=== PATIENT | female | born 1935 | race Caucasian/White ===

== ENCOUNTER 2019-02-19 10:24 | Observation (INO) ==
[2019-02-19] MEDS ORDERED: ONDANSETRON 4 MG/2 ML VIAL IV STA (11:23)
[2019-02-19] MEDS ORDERED: HYDROmorphone 2 MG/1 ML VIAL IV STA (11:23)
[2019-02-19 11:34] LABS: Basophils % 0.5 % (0.0-0.8); Eosinophils # 0.1 10*3/uL (0.0-0.87); Eosinophils % 0.6 % (0.00-10.9); Hematocrit 31.8 VOL% (35.7-47.0); Hemoglobin 10.6 GM/DL (12.0-16.0); Immature Granulocytes % 0.6 %; Immature Granulocytes Absolute 0.05 #; Lymphocytes # 1.2 10*3/uL (1.4-4.0); Lymphocytes % 15.7 % (21.3-54.2); Mean Corpuscular HGB Conc 33.3 GM/DL (32-36); Mean Corpuscular Volume 90.6 FL (87-102); Mean Platelet Volume 8.7 FL (9.6-12.0); Monocytes % 14.6 % (1.7-12.7); Platelet Count 219 T/CUMM (130-400); Red Blood Count 3.51 MC/CUMM (3.8-5.5); Red Cell Distribution Width 13.2 % (9.3-17.3); White Blood Count 7.9 T/CUMM (4-12)
[2019-02-19 11:44] LABS: INR 0.9; Partial Thromboplastin Time 27.6 SECS (0-40)
[2019-02-19 11:54] LABS: Albumin 3.4 G/DL (3.4-5.0); Bilirubin,Total 0.8 MG/DL (0.2-1.0); Calcium 8.9 MG/DL (8.5-10.1); Osmolality,Calculated 258.2 MOS/KG (273-304); Total Protein 7.9 G/DL (6.4-8.3)
[2019-02-19] MEDS ORDERED: ACETAMINOPHEN 325 MG TABLET PO PRN (12:05)
[2019-02-19] MEDS ORDERED: LACTULOSE 20 GM/30 ML UDCUP PO PRN (12:05)
[2019-02-19] MEDS ORDERED: ONDANSETRON 4 MG/2 ML VIAL IV PRN (12:05)
[2019-02-19 12:55] LABS: Apearance,Urine CLEAR (Clear); Bacteria,Urine Occasional /HPF (Few); Bilirubin,Urine Negative (Negative); Blood, Urine Negative (Negative); Glucose,Urine (UA) Negative (Negative); Hyaline Casts,Urine 6 /LPF (0-3); Ketones,Urine 5 mg/dL (Negative); Mucus,Urine Few /LPF (Occasional); Nitrite,Urine Negative (Negative); Protein,Urine Negative; RBC,Urine 4 /HPF (0-4); Squamous Epithelial Cell,Urine Occasional /HPF (0-10); Urine Color Yellow (Yellow); Urine Specific Gravity 1.019 (1.001-1.035); WBC,Urine 3 /HPF (0-6)
[2019-02-19 12:58] LABS: Risk Ratio 1.8; Thyroid Stimulating Hormone 0.812 uIU/ml (0.358-3.74); VLDL CHOLESTEROL 18.4 MG/DL
[2019-02-19] MEDS: SODIUM CHLORIDE 0.9% 1,000 ML IV SCH (20:42)
[2019-02-20] MEDS: SODIUM CHLORIDE 0.9% 1,000 ML IV SCH (05:49)
[2019-02-20 06:40] LABS: Basophils % 0.6 % (0.0-0.8); Eosinophils # 0.1 10*3/uL (0.0-0.87); Eosinophils % 2.4 % (0.00-10.9); Hemoglobin 8.7 GM/DL (12.0-16.0); Immature Granulocytes % 0.4 %; Immature Granulocytes Absolute 0.02 #; Lymphocytes # 1.5 10*3/uL (1.4-4.0); Lymphocytes % 29.6 % (21.3-54.2); Mean Corpuscular HGB Conc 32.2 GM/DL (32-36); Mean Corpuscular Volume 93.1 FL (87-102); Mean Platelet Volume 8.7 FL (9.6-12.0); Monocytes % 16.7 % (1.7-12.7); Neutrophils % 50.3 % (38.7-73.9); Platelet Count 170 T/CUMM (130-400); Red Cell Distribution Width 13.3 % (9.3-17.3)
[2019-02-20 06:58] LABS: Osmolality,Calculated 265.4 MOS/KG (273-304)
[2019-02-20 07:12] LABS: Band Neutrophils 7 % (0-10); Eosinophils 2 % (0-10); Lymphocytes 28 % (20-55); Platelet Estimate Normal; Segmented Neutrophils 48 % (50-85); Total Cells Counted 100
[2019-02-20] MEDS ORDERED: POTASSIUM CHLORIDE 20 MEQ TABLET PO ONE ×2 (07:56→11:00)
[2019-02-20] MEDS ORDERED: PANTOPRAZOLE 40 MG TABLET PO SCH (09:00)
[2019-02-20 12:39] VITALS: BP 136/61
== END 2019-02-20 15:30 | disposition swing bed (61) ==
LOC: N.ED 10:24 → N.EDINP 11:20 → INTOOBSV 11:20 → N.EDINP 13:02 → N.3E 13:09
PROVIDERS: ADMIT Internal Medicine; ATTEND Internal Medicine